=== PATIENT | male | born 1960 | race Hispanic/Latino ===

== ENCOUNTER → 2017-11-14 | Day surgery (SDC) | payer BC ==
[~2017-11-14] MED LIST: ATORVASTATIN CA20 MG PO; BENAZEPRIL HCL10 MG PO; FENTANYL CITRATE/PF 100MCG/2 ML INJ ONE; HYDROCHLOROTHIA25 MG PO; LIDOCAINE HCL 2% LOCAL INJ 5 ML SDV VIAL INJ ONE; METFORMIN HCL500 MG PO; MIDAZOLAM HCL 2 MG/2 ML VIAL ONE; PROPOFOL IV EMULSION 10 MG/ML 50 ML VIAL ONE
== END | disposition home or self-care (01) ==
LOC: OR 05:29
PROVIDERS: ATTEND Internal Medicine Gastroenterology
DX: Z12.11 Encounter for screening for malignant neoplasm of colon (principal); K63.5 Polyp of colon; K64.8 Other hemorrhoids; E11.9 Type 2 diabetes mellitus without complications; I10 Essential (primary) hypertension; G47.30 Sleep apnea, unspecified; F17.210 Nicotine dependence, cigarettes, uncomplicated; Z01.810 Encounter for preprocedural cardiovascular examination; Z68.36 Body mass index [BMI] 36.0-36.9, adult
CPT/HCPCS: 36415; 45380; 82948; 93005; J2001; J2250; 45378